=== PATIENT | male | born 1950 | race Caucasian/White ===

== ENCOUNTER 2022-03-16 07:36 | Emergency (ER) | payer OTHER ==
[2022-03-16] MEDS ORDERED: VIBRAMYCIN100 MG PO (08:09)
== END 2022-03-16 08:22 | disposition home or self-care (01) ==
LOC: FER 07:36
DX: S31.154A Open bite of abdominal wall, left lower quadrant without penetration into peritoneal cavity, initial encounter (principal); S41.151A Open bite of right upper arm, initial encounter; S21.259A Open bite of unspecified back wall of thorax without penetration into thoracic cavity, initial encounter; W57.XXXA Bitten or stung by nonvenomous insect and other nonvenomous arthropods, initial encounter; Y93.89 Activity, other specified; Y92.89 Other specified places as the place of occurrence of the external cause
CPT/HCPCS: 99281